=== PATIENT | female | born 1960 | race Caucasian/White ===

== ENCOUNTER → 2017-03-27 | Outpatient (CLI) | payer OTHER | LOC: BMCIMAGING 09:17 | PROVIDERS: ATTEND Internal Medicine Rheumatology | DX: M06.00 Rheumatoid arthritis without rheumatoid factor, unspecified site (principal); M19.041 Primary osteoarthritis, right hand; M19.042 Primary osteoarthritis, left hand ==

== ENCOUNTER → 2017-05-11 | Outpatient (CLI) | payer OTHER | LOC: FIMAGING 12:52 | PROVIDERS: ATTEND Internal Medicine | DX: Z12.31 Encounter for screening mammogram for malignant neoplasm of breast (principal) | CPT/HCPCS: G0202 ==

== ENCOUNTER → 2018-01-15 | Outpatient (CLI) | payer OTHER ==
[~2018-01-15] MED LIST: IOPAMIDOL (ISOVUE 370) 100 ML BTL IV ONE
== END ==
LOC: FIMAGING 08:53
DX: R07.9 Chest pain, unspecified (principal); Q23.1 Congenital insufficiency of aortic valve
CPT/HCPCS: 82565-PO; Q9967